=== PATIENT | female | born 1955 | race Caucasian/White ===

== ENCOUNTER 2017-10-12 10:43 | Inpatient (IN) ==
[2017-10-12 13:48] LABS: Basophils % 0.3 % (0.0-0.8); Hematocrit 36.8 VOL% (35.7-47.0); Hemoglobin 10.9 GM/DL (12.0-16.0); Immature Granulocytes % 0.5 %; Immature Granulocytes Absolute 0.07 #; Lymphocytes # 1.9 10*3/uL (1.4-4.0); Lymphocytes % 12.4 % (21.3-54.2); Mean Corpuscular HGB Conc 29.6 GM/DL (32-36); Mean Corpuscular Hemoglobin 25 PG (27-34); Mean Corpuscular Volume 83.6 FL (87-102); Mean Platelet Volume 9.6 FL (9.6-12.0); Monocytes # 1.2 10*3/uL (0.11-0.8); Neutrophils # 11.9 10*3/uL (1.4-7.4); Neutrophils % 78.8 % (38.7-73.9); Platelet Count 383 T/CUMM (130-400); Red Cell Distribution Width 17.2 % (9.3-17.3); White Blood Count 15.1 T/CUMM (4-12)
[2017-10-12] MEDS ORDERED: MORPHINE 4 MG/1 ML VIAL IV PRN (14:18)
[2017-10-12] MEDS ORDERED: ACETAMINOPHEN 325 MG TABLET PO PRN (14:18)
[2017-10-12] MEDS ORDERED: ONDANSETRON 4 MG/2 ML VIAL IV PRN (14:18)
[2017-10-12] MEDS: PIPERACILLIN/TAZOBACTAM 3,375 MG in SODIUM CHLORIDE 0.9% 100 ML IV SCH (17:10)
[2017-10-12] MEDS: LACTATED RINGERS 1,000 ML IV SCH (17:10)
[2017-10-12 18:14] LABS: Basophils % 0.3 % (0.0-0.8); Hematocrit 34.1 VOL% (35.7-47.0); Hemoglobin 10.2 GM/DL (12.0-16.0); Immature Granulocytes % 0.4 %; Immature Granulocytes Absolute 0.04 #; Lymphocytes % 9.7 % (21.3-54.2); Mean Corpuscular HGB Conc 29.9 GM/DL (32-36); Mean Corpuscular Hemoglobin 25 PG (27-34); Mean Corpuscular Volume 83.8 FL (87-102); Monocytes # 0.9 10*3/uL (0.11-0.8); Monocytes % 8.4 % (1.7-12.7); Neutrophils # 8.4 10*3/uL (1.4-7.4); Neutrophils % 81.2 % (38.7-73.9); Platelet Count 310 T/CUMM (130-400); Red Blood Count 4.07 MC/CUMM (3.8-5.5); Red Cell Distribution Width 17.2 % (9.3-17.3); White Blood Count 10.3 T/CUMM (4-12)
[2017-10-12 18:32] LABS: Calcium 8.3 MG/DL (8.5-10.1); Osmolality,Calculated 271.8 MOS/KG (273-304); Potassium 3.8 MMOL/L (3.5-5.1)
[2017-10-13] MEDS: PIPERACILLIN/TAZOBACTAM 3,375 MG in SODIUM CHLORIDE 0.9% 100 ML IV SCH ×3 (00:40→18:00)
[2017-10-13] MEDS: LACTATED RINGERS 1,000 ML IV SCH ×4 (00:43→14:30)
[2017-10-13 06:30] LABS: Albumin 2.6 G/DL (3.4-5.0); Calcium 8.3 MG/DL (8.5-10.1); Osmolality,Calculated 277.3 MOS/KG (273-304); Potassium 3.7 MMOL/L (3.5-5.1); Total Protein 5.6 G/DL (6.4-8.3)
[2017-10-13 06:57] LABS: Basophils % 0.5 % (0.0-0.8); Eosinophils # 0.1 10*3/uL (0.0-0.87); Eosinophils % 1.2 % (0.00-10.9); Hematocrit 32.4 VOL% (35.7-47.0); Hemoglobin 9.6 GM/DL (12.0-16.0); Immature Granulocytes % 0.2 %; Immature Granulocytes Absolute 0.01 #; Lymphocytes # 1.2 10*3/uL (1.4-4.0); Lymphocytes % 20.1 % (21.3-54.2); Mean Corpuscular HGB Conc 29.6 GM/DL (32-36); Mean Corpuscular Hemoglobin 25 PG (27-34); Mean Corpuscular Volume 83.9 FL (87-102); Mean Platelet Volume 10.3 FL (9.6-12.0); Monocytes # 0.7 10*3/uL (0.11-0.8); Monocytes % 11.5 % (1.7-12.7); Neutrophils % 66.5 % (38.7-73.9); Platelet Count 283 T/CUMM (130-400); Red Blood Count 3.86 MC/CUMM (3.8-5.5); Red Cell Distribution Width 17.2 % (9.3-17.3)
[2017-10-13 07:00] LABS: Hypochromasia 1+; Macrocytosis 1+; Polychromasia Slight
[2017-10-13 07:18] LABS: Apearance,Urine CLEAR (Clear); Bilirubin,Urine Negative (Negative); Blood, Urine Moderate mg/dL (Negative); Glucose,Urine (UA) Negative (Negative); Ketones,Urine Negative (Negative); Mucus,Urine Occasional /LPF (Occasional); Nitrite,Urine Negative (Negative); Protein,Urine Negative; RBC,Urine 9 /HPF (0-4); Squamous Epithelial Cell,Urine Occasional /HPF (0-10); Urine Color Yellow (Yellow); Urine Specific Gravity 1.021 (1.001-1.035); Urine Urobilinogen < 2.0 EU/DL (0.2-1.0); WBC,Urine 1 /HPF (0-6)
[2017-10-13] MEDS: PANTOPRAZOLE 40 MG TABLET PO SCH (12:23)
[2017-10-14] MEDS: PIPERACILLIN/TAZOBACTAM 3,375 MG in SODIUM CHLORIDE 0.9% 100 ML IV SCH ×2 (01:26→10:16)
[2017-10-14] MEDS: LACTATED RINGERS 1,000 ML IV SCH (06:10)
[2017-10-14 06:17] LABS: Calcium 8.1 MG/DL (8.5-10.1); Osmolality,Calculated 284.7 MOS/KG (273-304)
[2017-10-14 06:45] LABS: Eosinophils # 0.3 10*3/uL (0.0-0.87); Eosinophils % 6.4 % (0.00-10.9); Hematocrit 32.2 VOL% (35.7-47.0); Hemoglobin 9.4 GM/DL (12.0-16.0); Immature Granulocytes % 0.2 %; Immature Granulocytes Absolute 0.01 #; Lymphocytes # 1.1 10*3/uL (1.4-4.0); Lymphocytes % 27.8 % (21.3-54.2); Mean Corpuscular HGB Conc 29.2 GM/DL (32-36); Mean Corpuscular Hemoglobin 25 PG (27-34); Mean Corpuscular Volume 85.2 FL (87-102); Mean Platelet Volume 10.1 FL (9.6-12.0); Monocytes # 0.6 10*3/uL (0.11-0.8); Neutrophils % 49.6 % (38.7-73.9); Platelet Count 273 T/CUMM (130-400); Red Blood Count 3.78 MC/CUMM (3.8-5.5); White Blood Count 4.1 T/CUMM (4-12)
[2017-10-14 07:06] LABS: Giant Platelets Few; Hypochromasia 1+; Platelet Estimate Adequate
[2017-10-14 07:07] LABS: Macrocytosis Slight
[2017-10-14] MEDS: PANTOPRAZOLE 40 MG TABLET PO SCH (10:16)
[2017-10-14 11:35] VITALS: BP 106/60
== END 2017-10-14 13:05 | disposition home or self-care (01) | DRG 392 ==
LOC: N.3E 10:43 → N.CT 10:43
PROVIDERS: ADMIT Surgery; ATTEND Surgery

== ENCOUNTER 2020-04-23 05:31 | Inpatient (IN) ==
[2020-04-23 06:13] LABS: Basophils % 0.3 % (0.0-0.8); Hematocrit 43.8 VOL% (35.7-47.0); Hemoglobin 14.3 GM/DL (12.0-16.0); Immature Granulocytes % 0.5 %; Immature Granulocytes Absolute 0.06 #; Lymphocytes # 0.6 10*3/uL (1.4-4.0); Lymphocytes % 4.1 % (21.3-54.2); Mean Corpuscular HGB Conc 32.6 GM/DL (32-36); Mean Corpuscular Volume 97.3 FL (87-102); Mean Platelet Volume 10.4 FL (9.6-12.0); Monocytes % 5.2 % (1.7-12.7); Neutrophils % 89.9 % (38.7-73.9); Platelet Count 254 T/CUMM (130-400); Red Cell Distribution Width 14.5 % (9.3-17.3); White Blood Count 13.3 T/CUMM (4-12)
[2020-04-23 06:21] LABS: Bilirubin,Urine Negative (Negative); Blood, Urine Small mg/dL (Negative); Glucose,Urine (UA) Negative (Negative); Hyaline Casts,Urine 1 /LPF (0-3); Ketones,Urine Negative (Negative); Mucus,Urine Occasional /LPF (Occasional); Nitrite,Urine Negative (Negative); Protein,Urine Negative; RBC,Urine 3 /HPF (0-4); Squamous Epithelial Cell,Urine Occasional /HPF (0-10); Urine Appearance CLEAR (Clear); Urine Color Yellow (Yellow); Urine Specific Gravity 1.023 (1.001-1.035); Urine Urobilinogen < 2.0 EU/DL (0.2-1.0); WBC,Urine 1 /HPF (0-6)
[2020-04-23 06:28] LABS: Albumin 3.9 G/DL (3.4-5.0); Bilirubin,Total 0.5 MG/DL (0.2-1.0); Calcium 9.7 MG/DL (8.5-10.1); Total Protein 7.8 G/DL (6.4-8.3)
[2020-04-23 06:34] LABS: Band Neutrophils 2 % (0-10); Lymphocytes 3 % (20-55); Platelet Estimate Adequate; Segmented Neutrophils 90 % (50-85); Total Cells Counted 100
[2020-04-23 06:35] LABS: Hypochromasia Slight; Microcytosis Slight
[2020-04-23] MEDS: ACETAMINOPHEN 325 MG TABLET PO PRN ×3 (09:00→21:24)
[2020-04-23] MEDS: PANTOPRAZOLE 40 MG TABLET PO SCH (11:17)
[2020-04-23] MEDS: DOCUSATE SODIUM 100 MG CAPSULE PO SCH ×2 (11:17→21:25)
[2020-04-23] MEDS: SODIUM CHLORIDE 0.9% 1,000 ML IV SCH ×2 (11:30→16:39)
[2020-04-23] MEDS: MULTIVITAMIN (CENTRUM) TABLET PO SCH (13:12)
[2020-04-23] MEDS: MULTIVITAMIN (OCUVITE) TABLET PO SCH (13:12)
[2020-04-23] MEDS: PIPERACILLIN/TAZOBACTAM 3,375 MG in SODIUM CHLORIDE 0.9% 100 ML IV SCH ×2 (13:28→21:26)
[2020-04-23] MEDS: HYDROmorphone 2 MG/1 ML VIAL IV PRN (17:47)
[2020-04-23] MEDS: CETIRIZINE 10 MG TABLET PO SCH (21:23)
[2020-04-23] MEDS: ONDANSETRON 4 MG/2 ML VIAL IV PRN (22:01)
[2020-04-24] MEDS: SODIUM CHLORIDE 0.9% 1,000 ML IV SCH ×4 (03:37→22:13)
[2020-04-24] MEDS: ONDANSETRON 4 MG/2 ML VIAL IV PRN (03:38)
[2020-04-24] MEDS: PIPERACILLIN/TAZOBACTAM 3,375 MG in SODIUM CHLORIDE 0.9% 100 ML IV SCH ×3 (03:39→20:15)
[2020-04-24] MEDS ORDERED: PROMETHAZINE 25 MG/1 ML VIAL IM PRN (07:22)
[2020-04-24] MEDS: ACETAMINOPHEN 500 MG TABLET PO SCH ×2 (07:42→21:29)
[2020-04-24] MEDS: DOCUSATE SODIUM 100 MG CAPSULE PO SCH ×2 (08:40→21:30)
[2020-04-24] MEDS: ENOXAPARIN 40 MG/0.4 ML SYRINGE SUBCUT SCH (08:40)
[2020-04-24] MEDS: PANTOPRAZOLE 40 MG TABLET PO SCH (08:40)
[2020-04-24] MEDS: HYDROmorphone 2 MG/1 ML VIAL IV PRN (08:41)
[2020-04-24] MEDS: MULTIVITAMIN (CENTRUM) TABLET PO SCH (14:56)
[2020-04-24] MEDS: MULTIVITAMIN (OCUVITE) TABLET PO SCH (14:56)
[2020-04-24] MEDS: methylPREDNISolone SOD SUC 40 MG/1 ML VIAL IV SCH (14:57)
[2020-04-24] MEDS: CETIRIZINE 10 MG TABLET PO SCH (21:29)
[2020-04-25] MEDS: methylPREDNISolone SOD SUC 40 MG/1 ML VIAL IV SCH (03:06)
[2020-04-25] MEDS: PIPERACILLIN/TAZOBACTAM 3,375 MG in SODIUM CHLORIDE 0.9% 100 ML IV SCH ×2 (03:39→11:52)
[2020-04-25] MEDS: PANTOPRAZOLE 40 MG TABLET PO SCH (09:22)
[2020-04-25] MEDS: ENOXAPARIN 40 MG/0.4 ML SYRINGE SUBCUT SCH (09:23)
[2020-04-25] MEDS: DOCUSATE SODIUM 100 MG CAPSULE PO SCH (09:24)
[2020-04-25] MEDS: SODIUM CHLORIDE 0.9% 1,000 ML IV SCH (11:56)
[2020-04-25 12:28] VITALS: BP 127/64
== END 2020-04-25 13:15 | disposition home or self-care (01) | DRG 387 ==
LOC: N.ED 05:31 → N.EDINP 08:07 → N.4E 09:35
PROVIDERS: ADMIT Family Medicine; ATTEND Family Medicine